=== PATIENT | female | born 1945 | race Caucasian/White ===

== ENCOUNTER 2018-12-27 16:57 | Observation (INO) | payer OTHER ==
--- NOTE | 2018-12-27 17:03 | PDOC ---
History of Present Illness - General Chief Complaint: Chest Pain Stated Complaint: Chest Pain Time Seen by Provider: 12/27/18 17:03 History Source: Family, [facility] Records Exam Limitations: No Limitations - History of Present Illness Initial Comments: 12/27/18 17:04 73 year old female from [facility] with significant medical hx of HTN, HLD, DVT,dementia, anemia, depression, CAD, PVD, DM, Aortic valve sclerosis- moderate to severe and peptic ulcer disease presents with altered mental status and complaints of chest pain as witnessed by the staff at the [facility]. The staff informed daughter that the patient began complaining of chest pain than started yelling and throwing things. The physician at the facility gave the patient nitro and sent the patient to the ED. The daughter notes that in the past the patient has become altered due to a UTI and notes that the patients episode was quite different than her typical dementia. The patient reports resolution of chest pain at bedside. No recent fever, n/v/d/c, the patient has baseline urinary and fecal incontinence and wears a diaper. Past History - Past Medical History Allergies/Adverse Reactions: Allergies Allergy/AdvReac Type Severity Reaction Status Date / Time No Known Allergies Allergy Verified 12/27/18 17:09 Home Medications: Ambulatory Orders Acetaminophen [Mapap] 650 mg PO Q6H PRN 09/07/14 Citalopram Hydrobromide [Celexa -] 20 mg PO DAILY 09/07/14 Gabapentin 300 mg PO DAILY 09/07/14 Multivitamins [Multivit ([facility] Formulary)] 1 tab PO DAILY 09/07/14 Cholecalciferol (Vitamin D3) [Vitamin D3] 1,000 unit PO DAILY 01/29/16 Haloperidol [Haldol -] 0.25 mg PO BID 01/29/16 Sitagliptin Phosphate [Januvia] 100 mg PO DAILY 01/29/16 Aspirin 81 mg PO DAILY 12/27/18 Atorvastatin Calcium 10 mg PO DAILY 12/27/18 Carvedilol 6.25 mg PO BID 12/27/18 Clopidogrel Bisulfate [Clopidogrel] 75 mg PO DAILY 12/27/18 Cyanocobalamin (Vitamin B-12) [Cyanocobalamin Injection] 1,000 mcg IJ MONTHLY Docusate Sodium [Colace -] 300 mg PO HS 12/27/18 Ferrous Sulfate 325 mg PO DAILY 12/27/18 Insulin Aspart [Novolog] 100 unit SQ AC 12/27/18 Insulin Detemir [Levemir Flextouch] 5 unit SQ HS 12/27/18 Lactobacillus Acidophilus [Bacid -] 1 each PO DAILY 12/27/18 Liraglutide [Victoza 3-Hugo] 1.8 mg SQ DAILY 12/27/18 Omeprazole 20 mg PO DAILY 12/27/18 Sennosides [Senna] 8.6 mg PO HS 12/27/18 Heparin - 5,000 unit SQ BID vial 12/28/18 Insulin (Levemir) [Levemir Vial] 5 units SQ HS units 12/28/18 Nitroglycerin Sublingual [Nitrostat -] 0.4 mg SL Q5M PRN tab 12/28/18 Anemia: No Asthma: No Cancer: No Cardiac Disorders: No CVA: No COPD: No CHF: No DVT: Yes Dementia: Yes Diabetes: Yes GI Disorders: Yes (GERD) Disorders: No HTN: No Hypercholesterolemia: Yes Liver Disease: No Seizures: No Thyroid Disease: No - Surgical History Abdominal Surgery: No Appendectomy: No Cardiac Surgery: No Cholecystectomy: No Lung Surgery: No Neurologic Surgery: No Orthopedic Surgery: No - Suicide/Smoking/Psychosocial Hx Smoking History: Unknown if ever smoked Have you smoked in the past 12 months: No Number of Cigarettes Smoked Daily: 0 Hx Alcohol Use: No Drug/Substance Use Hx: No Substance Use Type: None Hx Substance Use Treatment: No Review of Systems - Review of Systems Able to Perform ROS?: Yes Comments:: 12/27/18 18:25 GENERAL/CONSTITUTIONAL: No fever or chills. No weakness. HEAD, EYES, EARS, NOSE AND THROAT: No change in vision. No ear pain or discharge. No sore throat. CARDIOVASCULAR: No shortness of breath RESPIRATORY: No cough, wheezing, or hemoptysis. GASTROINTESTINAL: No nausea, vomiting, diarrhea or constipation. GENITOURINARY: No dysuria, frequency, or change in urination. MUSCULOSKELETAL: No joint or muscle swelling or pain. No neck or back pain. SKIN: No rash NEUROLOGIC: No headache, vertigo, loss of consciousness, or change in strength/ sensation. ENDOCRINE: No increased thirst. No abnormal weight change HEMATOLOGIC/LYMPHATIC: No anemia, easy bleeding, or history of blood clots. ALLERGIC/IMMUNOLOGIC: No hives or skin allergy. *Physical Exam - Physical Exam Comments: 12/27/18 18:25 GENERAL: dementia, in no acute distress HEAD: No signs of trauma, normocephalic, atraumatic EYES: PERRLA, EOMI, sclera anicteric, conjunctiva clear ENT: oropharynx clear without exudates. Moist mucosa NECK: Normal ROM, supple LUNGS: No distress, speaks full sentences, clear to auscultation bilaterally HEART: Regular rate and rhythm, normal S1 and S2, no murmurs, rubs or gallops, peripheral pulses normal and equal bilaterally. ABDOMEN: Soft, nontender, normoactive bowel sounds. No guarding, no rebound. No masses EXTREMITIES : Normal inspection, Normal range of motion, no edema. No clubbing or cyanosis. R heel stage 1 well healing ulcer w/ pressure wound dressing. NEUROLOGICAL: Cranial nerves II through XII grossly intact. Normal speech, no focal sensorimotor deficits SKIN: Warm, Dry, normal turgor, no rashes or lesions noted ED Treatment Course - LABORATORY CBC & Chemistry Diagram: 12/28/18 06:15 12/28/18 06:00 Medical Decision Making - Medical Decision Making 12/27/18 18:24 3 year old female from [facility] with significant medical hx of HTN, HLD, DVT,dementia, anemia, depression, CAD (on Coumadin), PVD, DM, Aortic valve sclerosis- moderate to severe and peptic ulcer disease presents with altered mental status and complaints of chest pain as witnessed by the staff at the [facility]. The staff informed daughter that the patient began complaining of chest pain than started yelling and throwing things. The physician at the facility gave the patient nitro and sent the patient to the ED. The daughter notes that in the past the patient has become altered due to a UTI and notes that the patients episode was quite different than her typical dementia. ED Course: consider acs vs arrythmia ams consider infectious vs electrolyte vs intracranial pathology labs wnl UTI apparent head CT unremarkable trop negative EKG withut ST elevations however patient with HEART score ~5 and will reqire telle obs admission Discssed case with inpatient team resident Dr. Ayala Patient admitted to medicine. *DC/Admit/Observation/Transfer Diagnosis at time of Disposition: Chest pain - Discharge Dispostion Disposition: RETIREMENT FACILITY Condition at time of disposition: Stable Decision to Admit order: Yes - Referrals - Patient Instructions - Post Discharge Activity
[2018-12-27 17:36] VITALS: BMI 27.4
[2018-12-27 17:57] LABS: BASO % 0.7 % (0-2.0); EOS % 1.2 % (0-4.5); HEMATOCRIT 35.4 % (32.4-45.2); HEMOGLOBIN 11.8 GM/dL (10.7-15.3); LYMPH % 16.8 % (8-40); MCH 29.8 pg (25.7-33.7); MCHC 33.5 g/dl (32.0-36.0); MEAN CELL VOLUME 88.9 fl (80-96); MEAN PLT VOLUME 9.4 fl (7.5-11.1); MONO % 8.1 % (3.8-10.2); NEUT % 73.2 % (42.8-82.8); PLATELET COUNT 244 K/MM3 (134-434); RBC 3.98 M/mm3 (3.60-5.2); RDW 13.1 % (11.6-15.6); WHITE BLOOD COUNT 8.9 K/mm3 (4.0-10.0)
[2018-12-27 18:21] LABS: URINE APPEARANCE CLEAR; URINE BACTERIA 1761.8 /hpf (NEGATIVE); URINE BILIRUBIN NEGATIVE (NEGATIVE); URINE CASTS 4 /lpf (0-8); URINE COLOR YELLOW; URINE GLUCOSE (UA) NEGATIVE (NEGATIVE); URINE KETONE TRACE (NEGATIVE); URINE LEUK ESTERASE TRACE (NEGATIVE); URINE NITRITE POSITIVE (NEGATIVE); URINE PROTEIN 1+ (NEGATIVE); URINE RBC 0 /hpf (0-4); URINE UROBILINOGEN 0.2 mg/dL (0.2-1.0); URINE WBC 2 /hpf (0-5)
[2018-12-27 18:29] LABS: INR 1.17 (0.83-1.09); PROTHROMBIN TIME (PATIENT) 13.8 SEC (9.7-13.0)
[2018-12-27 18:31] LABS: ACTIVATED PTT 31.3 SECONDS (25.2-36.5)
[2018-12-27 18:39] LABS: ALBUMIN 3.9 g/dl (3.4-5.0); ALK PHOS 92 U/L (45-117); ANION GAP 4 MMOL/L (8-16); BILIRUBIN,TOTAL 0.3 mg/dL (0.2-1); BLOOD UREA NITROGEN 17 mg/dL (7-18); CALCIUM 9.3 mg/dL (8.5-10.1); CHLORIDE 107 mmol/L (98-107); CO2 27 mmol/L (21-32); CREATININE 0.9 mg/dL (0.55-1.3); GLUCOSE,RANDOM 158 mg/dL (74-106); POTASSIUM 4.9 mmol/L (3.5-5.1); SGOT/AST 13 U/L (15-37); SGPT/ALT 18 U/L (13-61); SODIUM 138 mmol/L (136-145); TOT PROT 7.3 g/dl (6.4-8.2)
--- NOTE | 2018-12-27 18:59 | PDOC ---
Documentation entered by Chuck Garrett SCRIBE, acting as scribe for Niko Yadav MD. Niko Yadav MD: This documentation has been prepared by the Gerry peterson Collisia, SCRIBE, under my direction and personally reviewed by me in its entirety. I confirm that the documentation accurately reflects all work, treatment, procedures, and medical decision making performed by me. Attending Attestation - Resident Resident Name: April Noguera - ED Attending Attestation I have performed the following: I have examined & evaluated the patient, The case was reviewed & discussed with the resident, I agree w/resident's findings & plan, Exceptions are as noted - HPI HPI: 12/27/18 18:07 The patient is a 73 year old female with a significant past medical history of hypertension, hyperlipidemia, dementia, anemia, depression, CAD, PVD, diabetes, and peptic ulcers who presents to the emergency department via EMS from [facility] with chest pain since earlier today. Pt's daughter states that the patient received nitro prior to arrival to ED which seemed to have relieved her reported chest pain. The patient's daughter also reports that the patient has also been altered which often occurs when the patient has a UTI. As per longterm, the patient was noted with psychotic episodes-kicking her overhead table down, stripping her bed covers and throwing everything on the floor frequently screaming out very loudly and displaying visual hallucination. DC staff also state that the patient began to clutch her chest and patient received 1 dose of 0.4 mg of Nitroglycerin sublingual. No other symptoms or complaints are reported but history is limited due to pt's dementia. - Physicial Exam PE: 12/27/18 19:34 agree with resident exam - Medical Decision Making 12/27/18 19:37 73yo F with MMP including dementia and CAD presents to the ED with AMS, agitation and CP. Vitals with elevated BP, otherwise unremarkable. With regards to AMS, plan to do broad w/u including metabolic vs neurologic vs infectious vs ischemic pathology With regards to CP, pt with elevated heart score, plan to check cardiac enzymes , admit for cardiac w/u. Heart Score/ECG Review #1 12/27/18 19:35 Twelve-lead EKG was performed and reviewed by me. NSR, rate 79, normal axis. No ANTHONY
[2018-12-27] MEDS ORDERED: CEFTRIAXONE 1,000 MG in DEXTROSE 5%-WATER - 50 ML IVPB ONE (19:41)
[2018-12-27] MEDS ORDERED: CEFTRIAXONE 1 GM/50 ML BAG ONE (19:55)
--- NOTE | 2018-12-27 21:37 | HP ---
CHIEF COMPLAINT: chest pain PCP: Kwadwo HISTORY OF PRESENT ILLNESS: 73 year old female with baseline dementia from [facility] brought in to hospital because of AMS and complaining of chest pain which started about afternoon today. [facility] At bedside patient denied chest pain and did not appear to be in distress. Most of history obtained from daughter who is a PA. 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 and peptic ulcer disease PAST SURGICAL HISTORY: as above Social History: Smoking:no Alcohol: no no Drugs: Family History: unknown Allergies No Known Allergies Allergy (Verified 12/27/18 17:09) HOME MEDICATIONS: Home Medications Medication Instructions Recorded Acetaminophen [Mapap] 650 mg PO Q6H PRN 09/07/14 Citalopram Hydrobromide [Celexa -] 20 mg PO DAILY 09/07/14 Gabapentin 300 mg PO DAILY 09/07/14 Multivitamins [Multivit ([facility] 1 tab PO DAILY 09/07/14 Formulary)] Ascorbate Calcium [Vitamin C] 500 mg PO DAILY 01/29/16 Cholecalciferol (Vitamin D3) 1,000 unit PO DAILY 01/29/16 [Vitamin D] Haloperidol [Haldol -] 0.25 mg PO BID 01/29/16 Sitagliptin Phosphate [Januvia] 100 mg PO DAILY 01/29/16 Aspirin 81 mg PO DAILY 12/27/18 Atorvastatin Calcium 10 mg PO DAILY 12/27/18 Carvedilol 6.25 mg PO BID 12/27/18 Clopidogrel Bisulfate [Clopidogrel] 75 mg PO DAILY 12/27/18 Cyanocobalamin (Vitamin B-12) 1,000 mcg IJ MONTHLY 12/27/18 [Cyanocobalamin Injection] Docusate Sodium [Colace -] 300 mg PO HS 12/27/18 Ferrous Sulfate 325 mg PO DAILY 12/27/18 Insulin Aspart [Novolog] 100 unit SQ AC 12/27/18 Insulin Detemir [Levemir Flextouch] 5 unit SQ HS 12/27/18 Lactobacillus Acidophilus [Bacid -] 1 each PO DAILY 12/27/18 Liraglutide [Victoza 3-Hugo] 1.8 mg SQ DAILY 12/27/18 Omeprazole 20 mg PO DAILY 12/27/18 Sennosides [Senna] 8.6 mg PO HS 12/27/18 REVIEW OF SYSTEMS - unable to obtain as patient has severe dementia PHYSICAL EXAMINATION Vital Signs - 24 hr 12/27/18 12/27/18 17:00 21:06 Temperature 98.6 F 98.5 F Pulse Rate 80 Pulse Rate [ 88 Left Radial] Respiratory 16 19 Rate Blood Pressure 170/69 Blood Pressure 164/79 [Right Arm] O2 Sat by Pulse 100 97 Oximetry (%) GENERAL: Awake, alert, disoriented, demented, bedbound HEAD: Normal with no signs of trauma. EYES: Pupils equal, round and reactive to light, extraocular movements intact, sclera anicteric, conjunctiva clear. No lid lag. EARS, NOSE, THROAT: Ears normal, nares patent, oropharynx clear without exudates. Moist mucous membranes. NECK: Normal range of motion, supple without lymphadenopathy, JVD, or masses. LUNGS: Breath sounds equal, clear to auscultation bilaterally. No wheezes, and no crackles. No accessory muscle use. HEART: Regular rate and rhythm, normal S1 and S2+ systolic murmur ABDOMEN: Soft, nontender, not distended, normoactive bowel sounds, no guarding, no rebound, no masses. MUSCULOSKELETAL: Normal range of motion at all joints. No bony deformities or tenderness. No CVA tenderness. UPPER EXTREMITIES: 2+ pulses, warm, well-perfused. No cyanosis. No clubbing. No peripheral edema. LOWER EXTREMITIES: 2+ pulses, warm, well-perfused. No calf tenderness. No peripheral edema. NEUROLOGICAL: Cranial nerves II-XII intact. Normal speech. PSYCHIATRIC: dementia SKIN: Warm, dry, normal turgor, no rashes or lesions noted, normal capillary refill. Laboratory Results - last 24 hr 12/27/18 12/27/18 12/27/18 17:39 17:40 17:40 WBC 8.9 RBC 3.98 Hgb 11.8 Hct 35.4 D MCV 88.9 MCH 29.8 D MCHC 33.5 RDW 13.1 D Plt Count 244 MPV 9.4 D Absolute Neuts (auto) 6.5 Neutrophils % 73.2 Lymphocytes % 16.8 Monocytes % 8.1 Eosinophils % 1.2 Basophils % 0.7 Nucleated RBC % 0 PT with INR INR PTT (Actin FS) Sodium 138 Potassium 4.9 Chloride 107 Carbon Dioxide 27 Anion Gap 4 L BUN 17 Creatinine 0.9 Creat Clearance w eGFR 61.21 Random Glucose 158 H Calcium 9.3 Total Bilirubin 0.3 AST 13 L ALT 18 Alkaline Phosphatase 92 Troponin I < 0.02 Total Protein 7.3 Albumin 3.9 Urine Color Yellow Urine Appearance Clear Urine pH 5.0 Ur Specific [place] 1.027 Urine Protein 1+ H Urine Glucose (UA) Negative Urine Ketones Trace H Urine Blood Negative Urine Nitrite Positive H Urine Bilirubin Negative Urine Urobilinogen 0.2 Ur Leukocyte Esterase Trace Urine WBC (Auto) 2 Urine RBC (Auto) 0 Urine Casts (Auto) 4 U Epithel Cells (Auto) 2.0 Urine Bacteria (Auto) 1761.8 12/27/18 17:40 WBC RBC Hgb Hct MCV MCH MCHC RDW Plt Count MPV Absolute Neuts (auto) Neutrophils % Lymphocytes % Monocytes % Eosinophils % Basophils % Nucleated RBC % PT with INR 13.80 H INR 1.17 H PTT (Actin FS) 31.3 Sodium Potassium Chloride Carbon Dioxide Anion Gap BUN Creatinine Creat Clearance w eGFR Random Glucose Calcium Total Bilirubin AST ALT Alkaline Phosphatase Troponin I Total Protein Albumin Urine Color Urine Appearance Urine pH Ur Specific [place] Urine Protein Urine Glucose (UA) Urine Ketones Urine Blood Urine Nitrite Urine Bilirubin Urine Urobilinogen Ur Leukocyte Esterase Urine WBC (Auto) Urine RBC (Auto) Urine Casts (Auto) U Epithel Cells (Auto) Urine Bacteria (Auto) Imaging studies reviewed ekg with no acute ischemic changes ASSESSMENT/PLAN: #Chest pain- r/o ACS given prior CAD and TAVR. May also be GERD/dyspepsia -tele/obs -trend troponins -echo -NGL SL prn -consider cardiology evaluation -PPI empirically #CAD history -c/w home dose plavix, ASA -statin -metoprolol home dose #DM -insulin novolog sliding scale -levemir -a1c -diabetic diet #Dementia -bed rest -fall precautions #DVT ppx - prior hx of DVT- off coumadin as per med list -heparin sc for moderate to high risk patient -confirm that off AC in am Visit type - Emergency Visit Emergency Visit: Yes ED Registration Date: 12/27/18 Care time: The patient presented to the Emergency Department on the above date and was hospitalized for further evaluation of their emergent condition. - New Patient This patient is new to me today: Yes Date on this admission: 12/27/18 - Critical Care Critical Care patient: No
[2018-12-27] MEDS ORDERED: SENNOSIDES 8.6MG TABLET (FP) PO PRN (21:44)
[2018-12-27] MEDS ORDERED: DOCUSATE SODIUM 100 MG CAPSULE (FP) PO SCH (22:00)
[2018-12-27] MEDS ORDERED: SENNOSIDES 8.6MG TABLET (FP) PO SCH (22:00)
[2018-12-27] MEDS ORDERED: INSULIN (LEVEMIR) 100 UNITS/ML UNITS SQ SCH (22:00)
[2018-12-27] MEDS ORDERED: NITROGLYCERIN SUBLINGUAL 1/150 0.4 MG TAB SL PRN (22:33)
[2018-12-27] MEDS: HEPARIN NA (PORCINE) 5,000 UNITS/ML 1ML VIAL SQ SCH (22:57)
[2018-12-27] MEDS: CARVEDILOL 6.25 MG TABLET (FP) PO SCH (22:57)
[2018-12-27] MEDS: INSULIN SLIDING SCALE (NOVOLOG) 1 VIAL SQ SCH (22:58)
[2018-12-27] MEDS ORDERED: HALOPERIDOL LACTATE 5 MG/ML IM ONE (23:26)
[2018-12-28] MEDS: INSULIN SLIDING SCALE (NOVOLOG) 1 VIAL SQ SCH ×3 (06:10→17:11)
[2018-12-28 07:54] LABS: HEMATOCRIT 35.6 % (32.4-45.2); HEMOGLOBIN 12.1 GM/dL (10.7-15.3); MCH 29.7 pg (25.7-33.7); MCHC 33.9 g/dl (32.0-36.0); MEAN CELL VOLUME 87.6 fl (80-96); PLATELET COUNT 240 K/MM3 (134-434); RBC 4.06 M/mm3 (3.60-5.2); WHITE BLOOD COUNT 7.7 K/mm3 (4.0-10.0)
[2018-12-28 08:27] LABS: ANION GAP 6 MMOL/L (8-16); BLOOD UREA NITROGEN 12 mg/dL (7-18); CALCIUM 9.3 mg/dL (8.5-10.1); CHLORIDE 104 mmol/L (98-107); CO2 28 mmol/L (21-32); CREATININE 0.8 mg/dL (0.55-1.3); GLUCOSE,RANDOM 159 mg/dL (74-106); MAGNESIUM 1.7 mg/dL (1.8-2.4); POTASSIUM 4.5 mmol/L (3.5-5.1); SODIUM 138 mmol/L (136-145)
[2018-12-28] MEDS ORDERED: PT OWN MED DRAWER 7, Y5N ONE (08:40)
[2018-12-28] MEDS: CARVEDILOL 6.25 MG TABLET (FP) PO SCH (09:02)
[2018-12-28] MEDS: HEPARIN NA (PORCINE) 5,000 UNITS/ML 1ML VIAL SQ SCH (09:03)
[2018-12-28] MEDS ORDERED: GABAPENTIN 300 MG CAPSULE (FP) PO SCH (10:00)
[2018-12-28] MEDS ORDERED: MULTIVITAMINS (DAILY MVI) TABLET (FP) PO SCH (10:00)
[2018-12-28] MEDS ORDERED: ASPIRIN 81 MG CHEWABLE TABLETS PO SCH (10:00)
[2018-12-28] MEDS ORDERED: PANTOPRAZOLE 40 MG TABLET (FP) PO SCH (10:00)
[2018-12-28] MEDS ORDERED: CHOLECALCIFEROL (VITAMIN D3) 1,000 UNIT TABLET (FP) PO SCH (10:00)
[2018-12-28] MEDS ORDERED: CLOPIDOGREL BISULFATE 75 MG TABLET (FP) PO SCH (10:00)
[2018-12-28] MEDS ORDERED: PANTOPRAZOLE 20 MG TABLET (FP) PO SCH (10:00)
[2018-12-28] MEDS ORDERED: CITALOPRAM HYDROBROMIDE 20 MG TABLET (FP) PO SCH (10:00)
[2018-12-28] MEDS ORDERED: HALOPERIDOL LACTATE 2 MG/ML UNIT-DOSE CUPS PO SCH (10:00)
--- NOTE | 2018-12-28 10:32 | PN ---
Progress Note (short form) - Note Progress Note: Vital Signs Temp 98.5 F 12/28/18 08:47 Pulse 83 12/28/18 08:47 Resp 20 12/28/18 08:47 BP 170/85 12/28/18 08:47 Pulse Ox 95 12/28/18 08:49 Intake & Output 12/27/18 12/27/18 12/28/18 11:59 23:59 11:59 Intake Total 100 Balance 100 Weight 170 lb Intake: Oral 100 Other: Voiding Method Incontinent Diaper # Unmeasured Voids Void 1 Height 5 ft 6 in Body Mass Index (BMI) 27.4 Weight Measurement Method Stated by Caregiver Active Medications Aspirin (Asa -) 81 mg PO DAILY [facility] Last Admin: 12/28/18 09:02 Dose: 81 mg Atorvastatin Calcium (Lipitor -) 10 mg PO [facility] Carvedilol (Coreg -) 6.25 mg PO BID [facility] Last Admin: 12/28/18 09:02 Dose: 6.25 mg Cholecalciferol (Vitamin D3 -) 1,000 unit PO DAILY [facility] Last Admin: 12/28/18 09:02 Dose: 1,000 unit Citalopram Hydrobromide (Celexa -) 20 mg PO DAILY [facility] Last Admin: 12/28/18 09:02 Dose: 20 mg Clopidogrel Bisulfate (Plavix -) 75 mg PO DAILY [facility] Last Admin: 12/28/18 09:02 Dose: 75 mg Docusate Sodium (Colace -) 300 mg PO [facility] Last Admin: 12/27/18 22:56 Dose: 300 mg Gabapentin (Neurontin -) 300 mg PO DAILY [facility] Last Admin: 12/28/18 09:02 Dose: 300 mg Haloperidol (Haldol Liquid -) 0.25 mg PO BID [facility] Last Admin: 12/28/18 09:03 Dose: 0.25 mg Heparin Sodium (Porcine) (Heparin -) 5,000 unit SQ BID [facility] Last Admin: 12/28/18 09:03 Dose: 5,000 unit Insulin Aspart (Novolog Vial Sliding Scale -) 1 vial SQ [facility]; Protocol Last Admin: 12/28/18 06:10 Dose: Not Given Insulin Detemir (Levemir Vial) 5 units SQ [facility] Last Admin: 12/27/18 22:57 Dose: 5 units Multivitamins/Minerals/Vitamin C (Tab-A-Vit -) 1 tab PO DAILY [facility] Last Admin: 12/28/18 09:02 Dose: 1 tab Nitroglycerin (Nitrostat -) 0.4 mg SL Q5M PRN PRN Reason: FOR CHEST PAIN Pantoprazole Sodium (Protonix -) 40 mg PO DAILY [facility] Last Admin: 12/28/18 09:02 Dose: 40 mg Senna (Senna -) 1 tab PO HS PRN PRN Reason: CONSTIPATION CBC, BMP 12/28/18 06:15 12/28/18 06:00 Abnormal Lab Results 12/27/18 12/27/18 12/27/18 17:39 17:40 17:40 PT with INR 13.80 H INR 1.17 H Anion Gap 4 L Random Glucose 158 H Magnesium AST 13 L Urine Protein 1+ H Urine Ketones Trace H Urine Nitrite Positive H 12/28/18 06:00 PT with INR INR Anion Gap 6 L Random Glucose 159 H Magnesium 1.7 L AST Urine Protein Urine Ketones Urine Nitrite Laboratory Results - last 24 hr 12/27/18 12/27/18 12/27/18 17:39 17:40 17:40 WBC 8.9 RBC 3.98 Hgb 11.8 Hct 35.4 D MCV 88.9 MCH 29.8 D MCHC 33.5 RDW 13.1 D Plt Count 244 MPV 9.4 D Absolute Neuts (auto) 6.5 Neutrophils % 73.2 Lymphocytes % 16.8 Monocytes % 8.1 Eosinophils % 1.2 Basophils % 0.7 Nucleated RBC % 0 PT with INR INR PTT (Actin FS) Sodium 138 Potassium 4.9 Chloride 107 Carbon Dioxide 27 Anion Gap 4 L BUN 17 Creatinine 0.9 Creat Clearance w eGFR 61.21 POC Glucometer Random Glucose 158 H Calcium 9.3 Magnesium Total Bilirubin 0.3 AST 13 L ALT 18 Alkaline Phosphatase 92 Creatine Kinase Troponin I < 0.02 Total Protein 7.3 Albumin 3.9 Urine Color Yellow Urine Appearance Clear Urine pH 5.0 Ur Specific [place] 1.027 Urine Protein 1+ H Urine Glucose (UA) Negative Urine Ketones Trace H Urine Blood Negative Urine Nitrite Positive H Urine Bilirubin Negative Urine Urobilinogen 0.2 Ur Leukocyte Esterase Trace Urine WBC (Auto) 2 Urine RBC (Auto) 0 Urine Casts (Auto) 4 U Epithel Cells (Auto) 2.0 Urine Bacteria (Auto) 1761.8 12/27/18 12/27/18 12/28/18 17:40 22:56 00:00 WBC RBC Hgb Hct MCV MCH MCHC RDW Plt Count MPV Absolute Neuts (auto) Neutrophils % Lymphocytes % Monocytes % Eosinophils % Basophils % Nucleated RBC % PT with INR 13.80 H INR 1.17 H PTT (Actin FS) 31.3 Sodium Potassium Chloride Carbon Dioxide Anion Gap BUN Creatinine Creat Clearance w eGFR POC Glucometer 136 Random Glucose Calcium Magnesium Total Bilirubin AST ALT Alkaline Phosphatase Creatine Kinase 112 Troponin I < 0.02 Total Protein Albumin Urine Color Urine Appearance Urine pH Ur Specific [place] Urine Protein Urine Glucose (UA) Urine Ketones Urine Blood Urine Nitrite Urine Bilirubin Urine Urobilinogen Ur Leukocyte Esterase Urine WBC (Auto) Urine RBC (Auto) Urine Casts (Auto) U Epithel Cells (Auto) Urine Bacteria (Auto) 12/28/18 12/28/18 12/28/18 05:53 06:00 06:15 WBC 7.7 RBC 4.06 Hgb 12.1 Hct 35.6 MCV 87.6 MCH 29.7 MCHC 33.9 RDW 13.0 Plt Count 240 MPV 9.0 Absolute Neuts (auto) Neutrophils % Lymphocytes % Monocytes % Eosinophils % Basophils % Nucleated RBC % PT with INR INR PTT (Actin FS) Sodium 138 Potassium 4.5 Chloride 104 Carbon Dioxide 28 Anion Gap 6 L BUN 12 Creatinine 0.8 Creat Clearance w eGFR 70.12 POC Glucometer 143 Random Glucose 159 H Calcium 9.3 Magnesium 1.7 L Total Bilirubin AST ALT Alkaline Phosphatase Creatine Kinase Troponin I < 0.02 Total Protein Albumin Urine Color Urine Appearance Urine pH Ur Specific [place] Urine Protein Urine Glucose (UA) Urine Ketones Urine Blood Urine Nitrite Urine Bilirubin Urine Urobilinogen Ur Leukocyte Esterase Urine WBC (Auto) Urine RBC (Auto) Urine Casts (Auto) U Epithel Cells (Auto) Urine Bacteria (Auto) cardiology consult
[2018-12-28] MEDS ORDERED: MAGNESIUM OXIDE 400 MG TABLET (FP) PO ONE (10:49)
--- NOTE | 2018-12-28 11:55 | DS ---
Physical Examination Vital Signs: Vital Signs Temperature 98.5 F 12/28/18 08:47 Pulse Rate 83 12/28/18 08:47 Respiratory Rate 20 12/28/18 08:47 Blood Pressure 170/85 12/28/18 08:47 O2 Sat by Pulse Oximetry (%) 95 12/28/18 08:49 Findings/Remarks: pt seen/ examined comfortable poor historian no distress Constitutional: Yes: No Distress, Calm Eyes: Yes: Conjunctiva Clear Neck: Yes: Supple Cardiovascular: Yes: Regular Rate and Rhythm Respiratory: Yes: CTA Bilaterally Gastrointestinal: Yes: Soft Edema: No Labs: CBC, BMP 12/28/18 06:15 12/28/18 06:00 Discharge Summary Reason For Visit: Chest Pain Current Active Problems Chest pain (Acute) Hospital Course: admitted for cp mi ruled out pt poor historian discussed with cardiology stable for d/c can do cardiac work up-- echo/ stress test as out pt basis will d/c to [facility] today meds reconcilled discussed with nursing staff also Condition: Stable - Instructions [facility] - Home Medications Comprehensive Discharge Medication List: Ambulatory Orders Acetaminophen [Mapap] 650 mg PO Q6H PRN 09/07/14 Citalopram Hydrobromide [Celexa -] 20 mg PO DAILY 09/07/14 Gabapentin 300 mg PO DAILY 09/07/14 Multivitamins [Multivit ([facility] Formulary)] 1 tab PO DAILY 09/07/14 Cholecalciferol (Vitamin D3) [Vitamin D3] 1,000 unit PO DAILY 01/29/16 Haloperidol [Haldol -] 0.25 mg PO BID 01/29/16 Sitagliptin Phosphate [Januvia] 100 mg PO DAILY 01/29/16 Aspirin 81 mg PO DAILY 12/27/18 Atorvastatin Calcium 10 mg PO DAILY 12/27/18 Carvedilol 6.25 mg PO BID 12/27/18 Clopidogrel Bisulfate [Clopidogrel] 75 mg PO DAILY 12/27/18 Cyanocobalamin (Vitamin B-12) [Cyanocobalamin Injection] 1,000 mcg IJ MONTHLY Docusate Sodium [Colace -] 300 mg PO HS 12/27/18 Ferrous Sulfate 325 mg PO DAILY 12/27/18 Insulin Aspart [Novolog] 100 unit SQ AC 12/27/18 Insulin Detemir [Levemir Flextouch] 5 unit SQ HS 12/27/18 Lactobacillus Acidophilus [Bacid -] 1 each PO DAILY 12/27/18 Liraglutide [Victoza 3-Hugo] 1.8 mg SQ DAILY 12/27/18 Omeprazole 20 mg PO DAILY 12/27/18 Sennosides [Senna] 8.6 mg PO HS 12/27/18 Heparin - 5,000 unit SQ BID vial 12/28/18 Insulin (Levemir) [Levemir Vial] 5 units SQ HS units 12/28/18 Nitroglycerin Sublingual [Nitrostat -] 0.4 mg SL Q5M PRN tab 12/28/18
--- NOTE | 2018-12-28 12:29 | PN ---
Progress Note (short form) - Note Progress Note: Coverage for Dr. Porsche Hackett Chief Complaint: Chart reviewed, events noted, reported chest pain with an acute psychotic episode in a patient with advanced organic brain syndrome/ dementia History of Present Illness: Seen and examined on telemetry. Full consult dictated Medications: Current Medications Aspirin (Asa -) 81 mg PO DAILY [facility] Last Admin: 12/28/18 09:02 Dose: 81 mg Atorvastatin Calcium (Lipitor -) 10 mg PO [facility] Carvedilol (Coreg -) 6.25 mg PO BID [facility] Last Admin: 12/28/18 09:02 Dose: 6.25 mg Cholecalciferol (Vitamin D3 -) 1,000 unit PO DAILY [facility] Last Admin: 12/28/18 09:02 Dose: 1,000 unit Citalopram Hydrobromide (Celexa -) 20 mg PO DAILY [facility] Last Admin: 12/28/18 09:02 Dose: 20 mg Clopidogrel Bisulfate (Plavix -) 75 mg PO DAILY [facility] Last Admin: 12/28/18 09:02 Dose: 75 mg Docusate Sodium (Colace -) 300 mg PO [facility] Last Admin: 12/27/18 22:56 Dose: 300 mg Gabapentin (Neurontin -) 300 mg PO DAILY [facility] Last Admin: 12/28/18 09:02 Dose: 300 mg Haloperidol (Haldol Liquid -) 0.25 mg PO BID [facility] Last Admin: 12/28/18 09:03 Dose: 0.25 mg Heparin Sodium (Porcine) (Heparin -) 5,000 unit SQ BID [facility] Last Admin: 12/28/18 09:03 Dose: 5,000 unit Insulin Aspart (Novolog Vial Sliding Scale -) 1 vial SQ [facility]; Protocol Last Admin: 12/28/18 11:55 Dose: 2 unit Insulin Detemir (Levemir Vial) 5 units SQ [facility] Last Admin: 12/27/18 22:57 Dose: 5 units Multivitamins/Minerals/Vitamin C (Tab-A-Vit -) 1 tab PO DAILY [facility] Last Admin: 12/28/18 09:02 Dose: 1 tab Nitroglycerin (Nitrostat -) 0.4 mg SL Q5M PRN PRN Reason: FOR CHEST PAIN Pantoprazole Sodium (Protonix -) 40 mg PO DAILY [facility] Last Admin: 12/28/18 09:02 Dose: 40 mg Senna (Senna -) 1 tab PO HS PRN PRN Reason: CONSTIPATION Home Medications Medication Instructions Recorded Acetaminophen [Mapap] 650 mg PO Q6H PRN 09/07/14 Citalopram Hydrobromide [Celexa -] 20 mg PO DAILY 09/07/14 Gabapentin 300 mg PO DAILY 09/07/14 Multivitamins [Multivit ([facility] 1 tab PO DAILY 09/07/14 Formulary)] Cholecalciferol (Vitamin D3) 1,000 unit PO DAILY 01/29/16 [Vitamin D3] Haloperidol [Haldol -] 0.25 mg PO BID 01/29/16 Sitagliptin Phosphate [Januvia] 100 mg PO DAILY 01/29/16 Aspirin 81 mg PO DAILY 12/27/18 Atorvastatin Calcium 10 mg PO DAILY 12/27/18 Carvedilol 6.25 mg PO BID 12/27/18 Clopidogrel Bisulfate [Clopidogrel] 75 mg PO DAILY 12/27/18 Cyanocobalamin (Vitamin B-12) 1,000 mcg IJ MONTHLY 12/27/18 [Cyanocobalamin Injection] Docusate Sodium [Colace -] 300 mg PO HS 12/27/18 Ferrous Sulfate 325 mg PO DAILY 12/27/18 Insulin Aspart [Novolog] 100 unit SQ AC 12/27/18 Insulin Detemir [Levemir Flextouch] 5 unit SQ HS 12/27/18 Lactobacillus Acidophilus [Bacid -] 1 each PO DAILY 12/27/18 Liraglutide [Victoza 3-Hugo] 1.8 mg SQ DAILY 12/27/18 Omeprazole 20 mg PO DAILY 12/27/18 Sennosides [Senna] 8.6 mg PO HS 12/27/18 Heparin - 5,000 unit SQ BID vial 12/28/18 Insulin (Levemir) [Levemir Vial] 5 units SQ HS units 12/28/18 Nitroglycerin Sublingual 0.4 mg SL Q5M PRN tab 12/28/18 [Nitrostat -] Review of Systems Unable to obtain Vital Signs: Last Vital Signs Temp Pulse Resp BP Pulse Ox 98.5 F 83 20 170/85 95 12/28/18 08:47 12/28/18 08:47 12/28/18 08:47 12/28/18 08:47 12/28/18 08:49 Intake & Output 12/25/18 12/26/18 12/27/18 12/28/18 23:59 23:59 23:59 23:59 Intake Total 100 Balance 100 Weight 170 lb Constitutional: No Distress, Calm, Thin Neck: Supple Negative JVD Respiratory: Clear to A&P Bilaterally Cardiovascular: S1 S2 Regular Rate and Rhythm Gastrointestinal: Soft Benign Normal Bowel Sounds Ext: No Edema Labs: Troponin, BNP 12/27/18 12/28/18 12/28/18 17:40 00:00 06:00 Troponin I < 0.02 < 0.02 < 0.02 CBC, BMP 12/28/18 06:15 12/28/18 06:00 Hepatic Panel Total Bilirubin 0.3 mg/dL (0.2-1) 12/27/18 17:40 AST 13 U/L (15-37) L 12/27/18 17:40 ALT 18 U/L (13-61) 12/27/18 17:40 Alkaline Phosphatase 92 U/L (45-117) 12/27/18 17:40 Albumin 3.9 g/dl (3.4-5.0) 12/27/18 17:40 INR, PTT INR 1.17 (0.83-1.09) H 12/27/18 17:40 Assessment/Plan ASSESSMENT: 1. Chest pain syndrome atypical for angina pectoris 2. CAD post PCI angina pectoris 3. LV diastolic dysfunction with clinical class 0 NYHA classification LV failure 4. post TAVR 5. HTN/HCVD 6. DM 7. Hyperlipidemia 8. Organic brain syndrome/advanced dementia PLAN: 1. Continue Coreg 2. Recommend ACEI or ARBS unless it is absolutely contraindicated 3. Continue Lipitor 4. Continue Norvasc 5. Continue ASA and Plavix 6. Can be D/C to SNF from the cardiovascular point of view and F/U with Dr. Porsche Hackett for additional cardiovascular evaluation Thank you for the consult Ashley Chavez M.D.
--- NOTE | 2018-12-28 14:17 | EKG ---
Test Reason : Blood Pressure : / mmHG Vent. Rate : 079 BPM Atrial Rate : 079 BPM P-R Int : 172 ms QRS Dur : 076 ms QT Int : 388 ms P-R-T Axes : 041 -16 028 degrees QTc Int : 444 ms POOR DATA QUALITY, INTERPRETATION MAY BE ADVERSELY AFFECTED NORMAL SINUS RHYTHM MODERATE VOLTAGE CRITERIA FOR LVH, MAY BE NORMAL VARIANT BORDERLINE ECG Confirmed by MD MIGDALIA, ERIKA ([id number]) on 12/28/2018 2:17:36 PM Referred By: Confirmed By:ERIKA NEGRON MD
--- NOTE | 2018-12-28 14:50 | CONS ---
DATE OF CONSULTATION: DATE OF DICTATION: 12/28/2018 CONSULTATION REQUESTED BY: Barb Burkett MD, coverage for Dr. Daniel Hackett. HISTORY: History was obtained from the chart. Patient with advanced organic brain syndrome, advanced dementia. A 73-year-old female resident of an extended care facility with known history of coronary artery disease status post percutaneous coronary intervention, stenting, angina pectoris, diastolic left ventricular dysfunction with clinical class 0 [employer] classification left ventricular failure, post transcutaneous aortic valve replacement for aortic valve stenosis, hypertensive cardiovascular disease, diabetes mellitus, hypercholesterolemia, organic brain syndrome, advanced dementia, who was transferred to [facility] from her extended care facility after having an acute psychotic episode and claiming chest discomfort. Apparently sublingual nitroglycerin was administered, but patient was transferred to the emergency room for further evaluation and management. Patient currently does not report any chest discomfort. No additional history is obtainable. Cardiac biochemical markers have been noted to be negative. Electrocardiogram did not reveal any acute changes. PAST MEDICAL HISTORY: Coronary artery disease status post percutaneous coronary intervention, stenting; angina pectoris, diastolic left ventricular dysfunction with clinical class 0 [employer] classification left ventricular failure, aortic valve disease; aortic valve stenosis, post transcutaneous aortic valve replacement; hypertensive cardiovascular disease, diabetes mellitus, hypercholesterolemia, organic brain syndrome, dementia, peripheral vascular disease. SOCIAL HISTORY: A resident of an extended care facility. FAMILY HISTORY: Not above. ALLERGIES: None reported. MEDICATIONS: Medical therapy at the [facility] included Victoza; vitamin B12, 1000 mcg once daily; omeprazole 20 mg once daily; acetaminophen 325-mg, 2 tablets once daily; Januvia 100 mg once daily; vitamin C 500 mg once daily; Haldol 0.25 mg daily; Neurontin 300 mg daily; Norvasc 5 mg once daily; Celexa 20 mg once daily; Plavix 75 mg once daily; vitamin D 1000 units once daily; ferrous sulfate 325 mg once daily; Ecotrin 81 mg once daily; Coreg 6.25 mg twice daily; Lipitor 10 mg once daily; Colace 100 mg, 3 capsules once daily. REVIEW OF SYSTEMS: Not obtainable. PHYSICAL EXAMINATION: Vital Signs: Blood pressure is 170/85 mmHg. Pulse rate is 83 beats per minute. Head and Neck: Pupils equal and reacting to light and accommodation. Extraocular movements are intact. Anicteric sclerae. Negative JVD. No bruit appreciated. Chest: Clear to auscultation and percussion. Cardiovascular: S1, S2 regular. Grade 1/6 systolic ejection murmur. No clicks or gallops. Abdomen: Soft, benign. Normoactive bowel sounds. Extremities: Negative edema, 1+ distal pulses. No calf tenderness. DIAGNOSTIC STUDIES: Electrocardiogram revealed sinus rhythm with nonspecific T-wave abnormality. Troponin I levels were noted. CBC revealed a white cell count 7.7, hemoglobin 12.1, platelet count 240. Basic metabolic profile with sodium 138, potassium 4.5, BUN of 12, creatinine 0.8, glucose 159. ASSESSMENT: 1. Chest pain syndrome, atypical for angina pectoris. 2. Coronary artery disease post percutaneous coronary intervention, angina pectoris. 3. Diastolic left ventricular dysfunction with clinical class 0 [employer] classification left ventricular failure. 4. Aortic valve disease, aortic valve stenosis post transcutaneous aortic valve replacement. 5. Hypertensive cardiovascular disease. 6. Diabetes mellitus. 7. Hypercholesterolemia. 8. Organic brain syndrome. RECOMMENDATIONS: 1. Continuation of Coreg therapy. 2. Recommendation addition of SHAKA inhibitor, angiotensin receptor alexandra therapy unless contraindicated. 3. Continuation of Lipitor therapy. 4. Continuation of Norvasc therapy. 5. Continuation of aspirin and Plavix therapy. 6. Patient can be discharged to the above noted subacute facility from the cardiovascular point of view in view of absence of evidence of acute coronary syndrome and to follow up with Dr. Daniel Hackett for additional cardiovascular evaluation. Thank you for the kind referral. YVAN GOMEZ M.D. [id number]
[2018-12-28 15:15] VITALS: TEMP 98.8
[2018-12-28 19:07] VITALS: BP 142/76; PULSE 86
[2018-12-28] MEDS ORDERED: ATORVASTATIN CA 10 MG TABLET (FP) PO SCH (22:00)
== END 2018-12-28 19:15 ==
LOC: JER 16:57 → INTOOBSV 20:17 → JERBED 20:17 → J4S 21:53
PROVIDERS: ADMIT Internal Medicine; ATTEND Internal Medicine
PROC: 3E03329 Introduction of Other Anti-infective into Peripheral Vein, Percutaneous Approach (ICD-10-PCS; principal; 2018-12-27)
PROC: 3E023GC Introduction of Other Therapeutic Substance into Muscle, Percutaneous Approach (ICD-10-PCS; 2018-12-27)
PROC: 3E013VG Introduction of Insulin into Subcutaneous Tissue, Percutaneous Approach (ICD-10-PCS; 2018-12-27)
PROC: 3E013GC Introduction of Other Therapeutic Substance into Subcutaneous Tissue, Percutaneous Approach (ICD-10-PCS; 2018-12-27)
DX: R07.9 Chest pain, unspecified (principal); I11.0 Hypertensive heart disease with heart failure; E78.5 Hyperlipidemia, unspecified; F03.90 Unspecified dementia, unspecified severity, without behavioral disturbance, psychotic disturbance, mood disturbance, and anxiety; F09 Unspecified mental disorder due to known physiological condition; F32.9 Major depressive disorder, single episode, unspecified; I25.119 Atherosclerotic heart disease of native coronary artery with unspecified angina pectoris; I73.9 Peripheral vascular disease, unspecified; E11.9 Type 2 diabetes mellitus without complications; I35.0 Nonrheumatic aortic (valve) stenosis; I50.1 Left ventricular failure, unspecified; Z79.82 Long term (current) use of aspirin; Z87.11 Personal history of peptic ulcer disease; Z86.718 Personal history of other venous thrombosis and embolism; Z79.4 Long term (current) use of insulin
CPT/HCPCS: 36415; 70450-TC; 71045-TC-FY; 80048; 80053; 81003; 82550; 82962; 83735; 84484; 85025; 85027; 85610; 85730; 87086; 87186; 93005; 93010; 96365; 96372; 99285-25; G0378; J1644